=== PATIENT | female | born 1985 | race Caucasian/White ===

== ENCOUNTER 2017-10-08 10:02 | Outpatient (CLI) | payer OTHER ==
[2017-10-08 13:31] LABS: HGB - HEMOGLOBIN 12.4 g/dL (12.0-16.0); MEAN CORPUSCULAR HEMOGLOBIN 28.9 pg (27.0-31.0); MEAN CORPUSCULAR HGB CONC 33.9 g/dL (32.0-36.0); MEAN CORPUSCULAR VOLUME 85.1 fL (81.0-99.0); MEAN PLATELET VOLUME 8.9 fL (7.9-10.8); RED BLOOD COUNT 4.29 10^6/uL (4.20-5.40); RED CELL DISTRIBUTION WIDTH 13.2 % (12.0-15.0); WHITE BLOOD COUNT 9.4 x10^3/uL (4.8-10.8)
== END 2017-10-08 10:03 | disposition home or self-care (01) ==
LOC: LAB.N 10:02
PROVIDERS: ATTEND Obstetrics & Gynecology
DX: Z34.90 Encounter for supervision of normal pregnancy, unspecified, unspecified trimester (principal)
CPT/HCPCS: 36415; 82950; 86850

== ENCOUNTER → 2017-10-09 | Outpatient (CLI) | payer OTHER ==
[2017-10-10 19:39] LABS: TOTAL PROTEIN 24HR,URINE 532 mg/24hr (40-150); TOTAL PROTEIN,URINE TIMED 38 mg/dL; TOTAL VOLUME 24HRS,URINE 1400 mL
== END ==
LOC: LAB 13:03
PROVIDERS: ATTEND Obstetrics & Gynecology
DX: O15.2 Eclampsia complicating the puerperium (principal)
CPT/HCPCS: 84156

== ENCOUNTER 2017-10-10 15:30 | Outpatient (CLI) | payer OTHER ==
[2017-10-10 19:24] LABS: BASOPHILS % (AUTO) 0.4 %; EOSINOPHILS % (AUTO) 0.3 %; HGB - HEMOGLOBIN 12.6 g/dL (12.0-16.0); LYMPHOCYTES # (AUTO) 2.3 10^3/uL (1.5-3.5); LYMPHOCYTES % (AUTO) 24.5 %; MEAN CORPUSCULAR HEMOGLOBIN 28.9 pg (27.0-31.0); MEAN CORPUSCULAR HGB CONC 33.1 g/dL (32.0-36.0); MEAN CORPUSCULAR VOLUME 87.4 fL (81.0-99.0); MONOCYTES # (AUTO) 0.5 10^3/uL (0.0-1.0); MONOCYTES % (AUTO) 5.4 %; NEUTROPHILS # (AUTO) 6.6 10^3/uL (1.5-6.6); NEUTROPHILS % (AUTO) 69.4 %; PLT - PLATELET COUNT 249 10^3/uL (130-450); RED BLOOD COUNT 4.36 10^6/uL (4.20-5.40); RED CELL DISTRIBUTION WIDTH 13.4 % (12.0-15.0); WHITE BLOOD COUNT 9.5 x10^3/uL (4.8-10.8)
[2017-10-10 19:25] LABS: ALBUMIN 3.2 g/dL (3.2-5.5); ALBUMIN/GLOBULIN RATIO 0.9 (1.0-2.2); BILIRUBIN,TOTAL 0.2 mg/dL (0.2-1.0); CALCIUM 8.7 mg/dL (8.5-10.3); CREATININE 0.6 mg/dL (0.4-1.0); TOTAL PROTEIN 6.8 g/dL (6.7-8.2)
[2017-10-10 19:39] LABS: TOTAL PROTEIN 24HR,URINE 532 mg/24hr (40-150); TOTAL PROTEIN,URINE TIMED 38 mg/dL; TOTAL VOLUME 24HRS,URINE 1400 mL
== END 2017-10-10 15:31 | disposition home or self-care (01) ==
LOC: LAB.N 15:30
PROVIDERS: ATTEND Obstetrics & Gynecology
DX: O15.2 Eclampsia complicating the puerperium (principal)
CPT/HCPCS: 36415; 80053; 81001; 83615; 84156; 85025; 87086

== ENCOUNTER 2017-10-15 14:32 | Outpatient (CLI) | payer OTHER ==
[2017-10-15 16:22] LABS: BASOPHILS # (AUTO) 0.1 10^3/uL (0.0-0.1); BASOPHILS % (AUTO) 0.9 %; EOSINOPHILS % (AUTO) 0.5 %; HGB - HEMOGLOBIN 12.5 g/dL (12.0-16.0); LYMPHOCYTES # (AUTO) 2.3 10^3/uL (1.5-3.5); LYMPHOCYTES % (AUTO) 26.5 %; MEAN CORPUSCULAR HEMOGLOBIN 29.1 pg (27.0-31.0); MEAN CORPUSCULAR HGB CONC 33.6 g/dL (32.0-36.0); MEAN CORPUSCULAR VOLUME 86.8 fL (81.0-99.0); MEAN PLATELET VOLUME 8.9 fL (7.9-10.8); MONOCYTES # (AUTO) 0.7 10^3/uL (0.0-1.0); MONOCYTES % (AUTO) 8.1 %; NEUTROPHILS # (AUTO) 5.5 10^3/uL (1.5-6.6); PLT - PLATELET COUNT 259 10^3/uL (130-450); RED BLOOD COUNT 4.28 10^6/uL (4.20-5.40); RED CELL DISTRIBUTION WIDTH 13.3 % (12.0-15.0); WHITE BLOOD COUNT 8.7 x10^3/uL (4.8-10.8)
[2017-10-15 16:28] LABS: CREATININE,URINE 97.7 mg/dL
[2017-10-15 16:32] LABS: CREATININE 0.5 mg/dL (0.4-1.0)
[2017-10-15 16:34] LABS: URIC ACID 4.9 mg/dL (2.6-7.2)
[2017-10-15] MEDS ORDERED: BETAMETHASONE 30 MG/5 ML VIAL IM ONE (19:38)
[2017-10-15] MEDS ORDERED: LACTATED RINGERS 1,000 ML IV ONE (19:42)
[2017-10-15] MEDS ORDERED: MAGNESIUM SULFATE 2 GRAM 4 GM/100 ML BAG IV ONE (19:43)
[2017-10-15] MEDS ORDERED: BETAMETHASONE 30 MG/5 ML VIAL ONE (19:43)
[2017-10-15] MEDS ORDERED: SODIUM CHLORIDE FLUSH 0.9% 10 ML SYRINGE ONE (19:45)
[2017-10-15] MEDS ORDERED: LACTATED RINGERS 1,000 ML IV SCH (20:00)
[2017-10-15] MEDS: MAGNESIUM SULFATE 2 GRAM 2 GM/50 ML BAG IV SCH ×2 (20:32→20:54)
--- NOTE | 2017-10-15 20:37 | CONSULTATION NOTE ---
DATE OF SERVICE: 10/15/2017 Physician: Colin Poole MD IDENTIFICATION: The patient is a 32-year-old G3, P2, female whose last menstrual period was March 21. She has an EDC of January 04, 2018, via a 9-week ultrasound. This makes her 28 weeks and 3 days. CHIEF COMPLAINT: Preeclampsia. HISTORY OF PRESENT ILLNESS: The patient was initially seen at [facility] but transferred to [facility] on September 25, 2017. She presents today with blood pressure in the dental office of 168/116 and 157/98. She came to Labor and Delivery, at which time her blood pressure was initially 130/97, then 140/93, 164/104 and then 155/ 108. Her most recent blood pressure is 149/95. She has been having headaches the last couple of days but currently does not have one. These responded to Tylenol as well as rest. She denies any scotoma. She does have a history of some sinus headaches. The patient complains of swelling in the hands and feet. She has a history of preeclampsia with her first but no preeclampsia with her second . She states that during her first , the blood pressures show a gradually increase over time and eventually was diagnosed with preeclampsia and required an induction at 38 weeks, which proceeded on to a . Her second was without any problems. PAST MEDICAL HISTORY: Positive for psoriasis. PAST SURGICAL HISTORY: section x2, as well an appendectomy. ALLERGIES: NONE KNOWN. CURRENT MEDICATIONS: 1. Zyrtec. 2. Zantac. 3. vitamins. 4. Occasional Tylenol. HABITS: The patient denies use of alcohol, tobacco, street or addictive drugs. SOCIAL HISTORY: The patient is active [employer], works as a cook, lives with the father of the baby, who is the father of the 2 previous children. FAMILY HISTORY: Positive for a sister with preeclampsia, as well as father with hypertension. PHYSICAL EXAMINATION: GENERAL: A well-developed, well-nourished white female. She is in no acute distress at this time. VITAL SIGNS: Her blood pressure most recently was 149/95. HEENT: Pupils equal, round. Extraocular muscles are intact. Thyroid is not palpably enlarged. Mouth is clear. HEART: Regular rate and rhythm without murmurs. LUNGS: Lung farooq are clear without rales or wheezes. BACK: No spinal or CVA tenderness noted. ABDOMEN: Shows evidence of an anchor scar from her previous section, as well as an exploratory laparotomy with an appendectomy. Fundal height is 29 cm. Uterus is nontender. She has no clonus. DTRs are normal at +1. LABORATORY DATA: Today, show a white count of 8.7, hemoglobin of 12.5. Hematocrit is 37.1. Platelets are 295. Creatinine is 0.5, uric acid 4.9. AST is 15. Protein creatinine ratio is 1.0. IMPRESSION: 1. A 32-year-old G3, P2, at 28 weeks and 5 days. 2. Preeclampsia with variable blood pressures up to the severe range. 3, Previous section x2. PLAN: Following consultation with Dr. Shirlene Burton, it was decided to transfer her to the [facility], which will be done via ambulance. She has been placed on magnesium sulfate 4 gram load with 2 grams per hour, as well as betamethasone 12.5 mg IM now. TD: 10/15/2017 21:36 MTDD
[2017-10-15] MEDS ORDERED: BETAMETHASONE 30 MG/5 ML VIAL IM SCH (20:51)
[2017-10-15] MEDS ORDERED: MAGNESIUM SULFATE 40 GM in LACTATED RINGERS 420 ML IV SCH (21:00)
[2017-10-15] MEDS ORDERED: LACTATED RINGERS 500 ML IV ONE (21:08)
[2017-10-15] MEDS ORDERED: LABETALOL 20 MG/4 ML SYRINGE IVP ONE (21:09)
[2017-10-15 23:22] VITALS: BP 160/92
== END 2017-10-15 21:19 | disposition short-term general hospital (02) ==
LOC: WFO 14:32 → FBP 14:36 → WFO 21:19
PROVIDERS: ATTEND Obstetrics & Gynecology
DX: O14.13 Severe pre-eclampsia, third trimester (principal); Z3A.28 28 weeks gestation of pregnancy; O34.219 Maternal care for unspecified type scar from previous cesarean delivery
CPT/HCPCS: 36415; 59025; 82565; 82570; 83615; 84156; 84450; 84550; 85025; 96365; 96372; J7120; 99214

== ENCOUNTER 2017-10-15 21:22 | Outpatient (CLI) | payer OTHER | END 2017-10-15 21:23 | disposition short-term general hospital (02) | LOC: EMS 21:22 | PROVIDERS: ATTEND Surgery | DX: O14.93 Unspecified pre-eclampsia, third trimester (principal) | CPT/HCPCS: A0425; A0426 ==